=== PATIENT | female | born 1930 | race Caucasian/White ===

== ENCOUNTER 2016-07-27 10:04 | Inpatient (IN) | payer OTHER, MEDICARE ==
--- NOTE | 2016-07-27 10:26 | EDPHY ---
H & P Stated Complaint: leg swelling, not feeling well. recent uti Time Seen by Provider: 07/27/16 10:05 HPI/ROS: CHIEF COMPLAINT: Not feeling well HISTORY OF PRESENT ILLNESS: The patient is an 86-year-old female who is brought to the emergency department by EMS. Her caregiver at the [facility] called because she seemed to be moving slowly today and had trouble tying her shoes and has had increasing edema in both legs over the last month. Patient does have a history of atrial fibrillation, CHF and aortic valve replacement and is on blood thinners. She does not have any history of renal or liver disease. She not had a fever. She was recently treated for urinary tract infection and finished Macrobid yesterday. She has not had any other medication changes. She does take Lasix. REVIEW OF SYSTEMS: Constitutional: denies: chills, fever, recent illness, recent injury EENTM: denies: blurred vision, double vision, nose congestion Respiratory: denies: cough, shortness of breath Cardiac: See HPI Gastrointestinal/Abdominal: denies: abdominal pain, diarrhea, nausea, vomiting, blood streaked stools Genitourinary: denies: dysuria, frequency, hematuria, pain Musculoskeletal: denies: joint pain, muscle pain Skin: denies: lesions, rash, jaundice, bruising Neurological: denies: headache, numbness, paresthesia, tingling, dizziness, weakness Hematologic/Lymphatic: denies: blood clots, easy bleeding, easy bruising Immunologic/allergic: denies: HIV/AIDS, transplant EXAM: GENERAL: Well-appearing, well-nourished and in no acute distress. HEAD: Atraumatic, normocephalic. EYES: Pupils equal round and reactive to light, extraocular movements intact, sclera anicteric, conjunctiva are normal. ENT: TMs normal, nares patent, oropharynx clear without exudates. Moist mucous membranes. NECK: Normal range of motion, supple without lymphadenopathy or JVD. LUNGS: Breath sounds clear to auscultation bilaterally and equal. No wheezes rales or rhonchi. HEART: Murmur, regular rhythm ABDOMEN: Soft, nontender, normoactive bowel sounds. No guarding, no rebound. No masses appreciated. BACK: No CVA tenderness, no spinal tenderness, step-offs or deformities EXTREMITIES: Normal range of motion, 2 + pitting or edema. No clubbing or cyanosis. NEUROLOGICAL: Cranial nerves II through XII grossly intact. Normal speech, normal gait. 5/5 strength, normal movement in all extremities, normal sensation PSYCH: Normal mood, normal affect. SKIN: Warm, dry, normal turgor, no visible rashes or lesions. Source: Patient Exam Limitations: No limitations - Personal History Current Tetanus/Diphtheria Vaccine: Yes Current Tetanus Diphtheria and Acellular Pertussis (TDAP): Yes - Medical/Surgical History Hx Asthma: No Hx Chronic Respiratory Disease: Yes Hx Diabetes: No Hx Cardiac Disease: Yes Hx Renal Disease: No Hx Cirrhosis: No Hx Alcoholism: No Hx HIV/AIDS: No Hx Splenectomy or Spleen Trauma: No Other PMH: HTN, high cholesterol, spinal stenosis, cervical spine surgery June 2013, arthritis, breast CA, Right mastectomy 2001, hysterectomy, [place] 1989 six weeks after flu vaccine, CHF, polymyalgia rheumatica, aortic valve replacement - Family History Significant Family History: No pertinent family hx - Social History Smoking Status: Never smoked Alcohol Use: None Drug Use: None Constitutional: Initial Vital Signs Temperature (C) 37 C 07/27/16 10:17 Heart Rate 72 07/27/16 10:17 Respiratory Rate 18 07/27/16 10:17 Blood Pressure 121/59 H 07/27/16 10:17 O2 Sat (%) 91 L 07/27/16 10:17 O2 Delivery Mode Nasal Cannula O2 (L/minute) 2 Allergies/Adverse Reactions: Penicillins Allergy (Intermediate, Verified 12/13/15 15:58) Rash Sulfa (Sulfonamide Antibiotics) Allergy (Intermediate, Verified 12/13/15 15:58) Rash Benzodiazepines Allergy (Verified 12/13/15 15:58) gabapentin Allergy (Verified 12/13/15 15:58) Shellfish *RETIRED-02/20/12 [Shellfish] Allergy (Verified 10/14/15 08:29) Home Medications: Medication Instructions Recorded Cholecalciferol Vit D3 [Vitamin D3 2,000 units PO DAILY 10/07/14 (*)] Herbals/Supplements -Info Only 1 ea PO DAILY 10/07/14 [place]-3 Fatty Acids [Fish Oil 1000 1,000 mg PO DAILY 10/07/14 mg (*)] Vit C/Dl-E AC/Lut/Copper/Znox 1 each PO DAILY 10/07/14 [Preservision Softgel] Metoprolol Tartrate [Lopressor 25 25 mg PO BID #60 tab 10/14/14 mg (*)] Aspirin EC [Aspirin EC 81 mg (*)] 81 mg PO DAILY 10/29/15 Atorvastatin Calcium [Lipitor 10 10 mg PO HS 10/29/15 mg (*)] Furosemide [Lasix 40 MG (*)] 60 mg PO DAILY 10/29/15 Levothyroxine [Synthroid 25 mcg 25 mcg PO DAILY06 10/29/15 (*)] Spironolactone [Aldactone 25 MG 25 mg PO DAILY 10/29/15 (*)] predniSONE [Prednisone] 15 mg PO DAILY 10/29/15 Digoxin [Lanoxin 0.125 mg] 0.125 mg PO DAILY10 #0 tab 11/04/15 Furosemide [Lasix 40 MG (*)] 40 mg PO HS 07/27/16 Nitrofurantoin Monohyd/M-Cryst 100 mg PO BID 07/27/16 [Macrobid 100 mg Capsule] Medical Decision Making - Diagnostics EKG Interpretation: An EKG obtained and was read and documented in trace view. Please see trace view for full reading and report. Atrial fibrillation/flutter with a rate of 71. Similar to previous Imaging: X-ray: chest x-ray was obtained. I viewed the images myself on the PACS system. My interpretation of the images is: Bilateral lower lobe infiltrates. The radiologist interpretation is bilateral lower lobe infiltrate. ED Course/Re-evaluation: 11:55 a.m. we discussed the x-ray and lab results. I will start her on antibiotics for pneumonia admit to hospital service. She also has a slightly elevated troponin and is in atrial fib/flutter. This is likely due to the strain of the infection as is her BMP. I will treat initially for the infection and have added sepsis labs. 12:30 p.m. I discussed the case with Luke Alaniz who will accept and agrees with Marni. He requests telemetry. I have ordered the sepsis fluid bolus. The patient does have peripheral edema and elevated BNP and history of heart failure. Will take it slowly. On chest x-ray she does not have signs of pulmonary edema. She is not hypoxic. Differential Diagnosis: Partial list of the Differential diagnosis considered include but were not limited to; pneumonia, CHF, arrhythmia, renal insufficiency and although unlikely based on the history and physical exam, I also considered TIA, CVA. - Data Points Laboratory Results: Laboratory Results 07/27/16 10:15 07/27/16 10:15 Medications Given: Discontinued Medications Cefepime HCl 2 gm/ Dextrose 100 mls @ 200 mls/hr IV EDNOW ONE PRN Reason: Protocol Stop: 07/27/16 12:20 Last Admin: 07/27/16 16:51 Dose: Not Given Sodium Chloride (Ns *For Sepsis Order Set Only*) 1,442 ml 30 ml/kg (1442 ml) IV EDNOW ONE Stop: 07/27/16 12:51 Last Admin: 07/27/16 13:19 Dose: 1,442 ml Departure - Departure Disposition: [facility] Inpatient Acute Clinical Impression: Severe sepsis Pneumonia Qualifiers: Pneumonia type: aspiration pneumonia Aspiration pneumonia type: unspecified Laterality: bilateral Lung location: lower lobe of lung Qualified Code(s): J69.0 - Pneumonitis due to inhalation of food and vomit Condition: Fair
[2016-07-27 10:33] LABS: % IMMATURE GRANULYOCYTES 0.9 % (0.0-1.1); ABSOLUTE IMMATURE GRANULOCYTES 0.07 10^3/uL (0.00-0.10); ADD DIFF? NO; ADD MORPH? NO; ADD SCAN? NO; ATYPICAL LYMPHOCYTE FLAG 0 (0-99); FRAGMENT RBC FLAG 0 (0-99); HEMOGLOBIN 12.9 g/dL (12.6-16.3); LEFT SHIFT FLG 10 (0-99); LIPEMIA HEMOLYSIS FLAG 90 (0-99); MEAN CELL HEMOGLOBIN 31.9 pg (27.9-34.1); MEAN CELL HEMOGLOBIN CONCENTR. 33.9 g/dL (32.4-36.7); MEAN CELL VOLUME 94.1 fL (81.5-99.8); MEAN PLATELET VOLUME 10.8 fL (8.7-11.7); PLATELET CLUMPS FLAG 0 (0-99); PLATELET COUNT 173 10^3/uL (150-400); RED BLOOD CELL COUNT 4.04 10^6/uL (4.18-5.33); RED CELL DISTRIBUTION WIDTH 15.2 % (11.5-15.2)
[2016-07-27 10:49] LABS: INR 3.05 (0.83-1.16)
[2016-07-27 10:50] LABS: APTT 47.5 SEC (23.0-38.0)
[2016-07-27 11:11] LABS: ANION GAP 11 mEq/L (8-16); CALCIUM 9.2 mg/dL (8.5-10.4); CARBON DIOXIDE 27 mEq/l (22-31); CHLORIDE 95 mEq/L (97-110); CREATININE 1.2 mg/dL (0.6-1.0); GLOMERULAR FILTRATION RATE 42; GLUCOSE 91 mg/dL (70-100); POTASSIUM 3.8 mEq/L (3.5-5.2); SODIUM 133 mEq/L (134-144)
--- NOTE | 2016-07-27 11:18 | CPEKG ---
Heart Rate: 71 RR Interval: 845 QRSD Interval: 108 QT Interval: 452 QTC Interval: 492 QRS [place]: -55 T Wave [place]: 106 EKG Severity - ABNORMAL ECG - EKG Impression: A-FLUTTER W/ PREDOM 4:1 AV BLOCK, A-RATE 283 EKG Impression: LEFT ANTERIOR FASCICULAR BLOCK EKG Impression: LVH WITH SECONDARY REPOLARIZATION ABNORMALITY EKG Impression: BORDERLINE PROLONGED QT INTERVAL Electronically Signed By: Donal Diaz 27-Jul-2016 11:41:50
[2016-07-27 11:22] LABS: TROPONIN I 0.107 ng/mL (0-0.034)
[2016-07-27] MEDS ORDERED: CEFEPIME HCL 2 GM in D5W 100 ML IV ONE (11:51)
[2016-07-27] MEDS ORDERED: NS 1,000 ML BAG *FOR SEPSIS ORDER SET ONLY IV ONE (12:50)
[2016-07-27] MEDS: ERTAPENEM 1 GM in NS 100 ML IV SCH (12:53)
[2016-07-27] MEDS ORDERED: ALBUTEROL 3 ML DEYVIAL IH PRN (13:03)
[2016-07-27] MEDS ORDERED: ONDANSETRON 4 MG/2 ML VIAL IVP PRN (13:03)
[2016-07-27] MEDS ORDERED: ONDANSETRON DISINTEGRATING 4 MG TAB PO PRN (13:03)
[2016-07-27] MEDS ORDERED: diphenhydrAMINE 25 MG CAP PO PRN (13:03)
--- NOTE | 2016-07-27 14:03 | GHP ---
[f rep st] HISTORY AND PHYSICAL DATE OF ADMISSION: 07/27/2016 REASON FOR ADMISSION: Suspected pneumonia versus fluid overload. HISTORY OF PRESENT ILLNESS: Ms. Romano is an 86-year-old female, who has been reported to be more c onfused with encounters with her son and friends, given difficulty with dialing phone numbers. This morning she was brought to the emergency room. In the ER, she was found to have suggestion of infi ltrates in her lungs. She has also had significant edema in her lower extremities. She has been on Macrobid for the past 6 days for a urinary tract infection. She has had a minimal cough, but feels there is a bit more cough present now than she has typically. No fever or chills. No headache, no gastrointestinal complaints. No chest pain or sense of palpitations. No gross dysuria symptoms no w or before starting antibiotics, other than lower extremity edema. No other physical changes besid es bruising on her right sclerae. PAST MEDICAL HISTORY: Significant for known valvular heart disease, status post open heart surgery approximately 2 years ago, CHF secondary to valvular insufficiency, systolic function has been maint ained, polymyalgia rheumatica on chronic prednisone, mitral valve regurgitation, tricuspid regurgita tion, shortness of breath, history of pleural effusions improved on diuretic therapy, atrial fibrill ation with stable rate, on chronic Coumadin therapy, hypothyroidism, pulmonary hypertension on Revat io, neck pain, chronic, status post prior large C-spine fusion and lumbar spine spinal stenosis, 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 CURRENT MEDICATIONS: Coumadin daily, aspirin daily, digoxin 0.125 mg daily, bone builder daily, zol pidem 5 mg at bedtime, PreserVision ocular supplement daily, vitamin D3 daily, tramadol 50 mg q.8 ho urs p.r.n. pain, sildenafil 20 mg three times daily, Miacalcin nasal spray 1 spray to 1 nostril alte rnating daily, spironolactone 12.5 mg daily, metoprolol 25 mg twice daily, Lasix 60 mg in the mornin g 40 mg mid day, warfarin averaging approximately 2.5 mg daily, Lipitor 10 mg daily, levothyroxine 2 5 mcg daily, prednisone 15 mg daily. Her last dose of Macrobid would of been today at 100 mg daily. SURGICAL HISTORY: Hysterectomy, mastectomy, cervical diskectomy and fusion, open-heart surgery with valvular replacement and bypass, prior hospitalizations due to surgical issues as well as compressi on fractures. SOCIAL HISTORY: Non smoker, non drinker. Lives independently. 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 FAMILY HISTORY: Father at 69 complications of heart disease and diabetes. Mother at 95. ALLERGIES: Penicillin which causes a rash. Sulfa which causes diffuse rash. Celebrex causes diffu se rash. Gabapentin. REVIEW OF SYSTEMS: GENERAL: She is a bit more tired. She has been confused. No headache. No feve r or chills. HEENT: No visual changes. No nasal congestion, sore throat, ear fullness. Long-stand ing hearing loss right greater the left, is stable. NECK: No acute swelling. No new pain. Chroni c pain in the neck region, stable. RESPIRATORY: She denies shortness of breath. She admits to a sl ight sense of cough. No difficulty with breathing. CARDIOVASCULAR: No chest pain, heaviness, or pr essure. No sense of rhythm irregularity. GI: She denies any recent choking episode. She denies d ysphagia. No stomach pain. No change in bowel habits. No abdominal pain. : No current urinary symptoms. SKIN: No acute changes. MUSCULOSKELETAL: Chronic back pain is a stable challenge. She does take p.r.n. tramadol and Tylenol for this. Lower extremity edema in her legs has been much mor e problematic/prominent over the past 5 or so days. Myelopathy symptoms in her lower extremities be low the level of the knee, is a stable phenomenon. PHYSICAL EXAM: INITIAL VITAL SIGNS: Blood pressure 121/59, heart rate 72, respiratory rate 18, 91% room air. Temperature 37 degrees Celsius. GENERAL: Pleasant older female. HEENT: Hard of hearing . Prior cataract surgery. Scleral hemorrhage right eye laterally. Nasal cannula in place. The na denita mucosa is generally smooth. Oropharynx is benign. NECK: Without masses. Postsurgical changes are noted. No jugular venous pressure elevation. LUNGS: Increased bibasilar crackles with nonprodu ctive cough. HEART: Irregularly irregular rhythm without new murmur. Chronic 1 to 2/6 systolic mu rmur is present. ABDOMEN: Positive bowel sounds. Soft, nontender, nondistended. BREAST AND PELVIC : Exam is deferred. SKIN: Scattered mild ecchymosis. No new rash. EXTREMITIES: Lower extremities with 2 to 3+ edema. Joints without other acute erythema, warmth, or swelling. DATABASE: Electrolytes: Sodium 133, BUN 61, creatinine 1.2. Troponin 0.107 which is elevated. BNP is 6280, which is up about 2000 from prior baseline. Lactic acid normal range. INR 3.05. D-dimer 0.91. White count 7.77. Hemoglobin 12.9, platelets 173, left shift 93.5% neutrophils. Chest x-ray, bibasilar infiltrates, pattern potentially consistent with aspiration pneumonia. ASSESSMENT: 1. Abnormal chest x-ray, muddled mentation, possible congestive heart failure exacerbation versus p neumonia. She has been started on Invanz. Blood cultures have been taken. Will continue current a ntibiotic course and see how she improves. 2. Valvular insufficiency with resultant systolic congestive heart failure. She has been on a fair ly stable aggressive diuretic regimen. She has had an increase in lower extremity edema and her inf iltrates could certainly represent some level of fluid overload in her lungs. We will add compressi ve stockings, continue her current diuretic schedule, and follow her symptoms closely. 3. Elevated troponin, likely secondary to stress of the current situation. Will follow this value with a repeat tomorrow. 4. Elevated INR. She is on Coumadin for atrial fibrillation. INR is slightly above goal. We will adjust therapy once her medicines have been reconciled by pharmacy. 5. Valvular heart disease. We will follow her clinical course. She may need a repeat echocardiogr am. 6. Pulmonary hypertension. Historically she has done quite well on sildenafil three times daily. Will continue. 7. Confusion, likely secondary to pneumonia versus fluid overload, and some intermittent hypoxia ve rsus medications. She has taken tramadol intermittently which could be the reason for this. Will o bserve her acute encephalopathy closely, and follow for its improvement. 8. Elevated BUN/creatinine. This is chronic given her diuretic therapy. We will follow closely. 9. She is a DNR and we will discuss her current situation with her son Gerardo, based on patient requ est. /[id number]/MODL
[2016-07-27] MEDS ORDERED: FUROSEMIDE 40 MG TAB PO SCH ×2 (17:00→21:00)
[2016-07-27] MEDS: predniSONE 10 MG TAB PO SCH (17:11)
[2016-07-27 19:39] LABS: COLOR YELLOW; LEUKOCYTE ESTERASE,URINE TRACE (NEGATIVE); NITRITE,URINE NEGATIVE (NEGATIVE)
[2016-07-27 19:48] LABS: BACTERIA TRACE /hpf (NONE SEEN)
[2016-07-27] MEDS: METOPROLOL TARTRATE 25 MG TAB PO SCH (20:03)
[2016-07-27] MEDS: ATORVASTATIN CALCIUM 10 MG TAB PO SCH (20:03)
[2016-07-28 04:52] LABS: % IMMATURE GRANULYOCYTES 0.5 % (0.0-1.1); ABSOLUTE IMMATURE GRANULOCYTES 0.02 10^3/uL (0.00-0.10); ADD DIFF? NO; ADD MORPH? NO; ADD SCAN? NO; ATYPICAL LYMPHOCYTE FLAG 0 (0-99); FRAGMENT RBC FLAG 0 (0-99); HEMATOCRIT 31.3 % (38.0-47.0); HEMOGLOBIN 10.6 g/dL (12.6-16.3); LEFT SHIFT FLG 0 (0-99); LIPEMIA HEMOLYSIS FLAG 90 (0-99); MEAN CELL HEMOGLOBIN 31.5 pg (27.9-34.1); MEAN CELL HEMOGLOBIN CONCENTR. 33.9 g/dL (32.4-36.7); MEAN CELL VOLUME 93.2 fL (81.5-99.8); MEAN PLATELET VOLUME 10.3 fL (8.7-11.7); PLATELET CLUMPS FLAG 0 (0-99); PLATELET COUNT 153 10^3/uL (150-400); RED BLOOD CELL COUNT 3.36 10^6/uL (4.18-5.33); RED CELL DISTRIBUTION WIDTH 14.9 % (11.5-15.2)
[2016-07-28 05:06] LABS: ANION GAP 5 mEq/L (8-16); CALCIUM 8.6 mg/dL (8.5-10.4); CARBON DIOXIDE 27 mEq/l (22-31); CHLORIDE 101 mEq/L (97-110); CREATININE 0.9 mg/dL (0.6-1.0); GLOMERULAR FILTRATION RATE 59; GLUCOSE 121 mg/dL (70-100); POTASSIUM 3.6 mEq/L (3.5-5.2); SODIUM 133 mEq/L (134-144)
[2016-07-28 05:13] LABS: INR 3.85 (0.83-1.16); PROTIME(PATIENT) 38.5 SEC (12.0-15.0)
[2016-07-28 05:17] LABS: TROPONIN I 0.063 ng/mL (0-0.034)
[2016-07-28] MEDS: LEVOTHYROXINE 25 MCG TAB PO SCH (06:18)
--- NOTE | 2016-07-28 08:28 | SOAPPROG ---
SOAP Progress Note Assessment/Plan: Assessment: Plan: 07/28/16 08:28 poss pna--check CXR, continue invanz for now. edema/CHF/valvular heart disease--expect diuresis today from fluid load yesterday T-spine cord entrapment--use brace when sitting, standing, walking a fib--coumadin held INR elevated--follow daily confusion--poss due to macrobid (stopped), pna, or other--follow Subjective: The patient states she slept well. She feels sleepy this am. No trouble breathing or cough. No CP. Objective: Vital Signs Temp Pulse Resp BP Pulse Ox 36.4 C 74 16 122/58 H 98 07/28/16 07:19 07/28/16 07:19 07/28/16 07:19 07/28/16 07:19 07/28/16 07:19 Laboratory Results 07/28/16 04:41 07/28/16 04:41 07/27/16 07/28/16 07/29/16 05:59 05:59 05:59 Intake Total 450 Output Total 300 300 Balance 150 -300 PT 38.5 SEC (12.0-15.0) H 07/28/16 04:41 INR 3.85 (0.83-1.16) H 07/28/16 04:41 Gen: NAD, sleepy muddled this am Lungs: diminished BS, dry cough Heart: irreg irreg Abd + bs soft NT, ND LE's reduced edema INR elevated WBC and neurophil % normal range BMP cr lower than baseline after fluids yesterday ICD10 Worksheet Patient Problems: Problems Problem Status Onset Pneumonia Acute Severe sepsis Acute Aortic stenosis Acute CAD (coronary artery disease) Acute CHF due to valvular disease Acute Sacral insufficiency fracture Acute
[2016-07-28] MEDS ORDERED: Herbals/Supplements -Info Only PO SCH (09:00)
[2016-07-28] MEDS: PRESERVISION AREDS2 FORMULA EYE VIT 1 EACH PO SCH (09:00)
[2016-07-28] MEDS: FUROSEMIDE 40 MG TAB PO SCH ×2 (09:00→14:44)
[2016-07-28] MEDS: CHOLECALCIFEROL VIT D3 1,000 UNITS TAB PO SCH (09:00)
[2016-07-28] MEDS: ASPIRIN EC 81 MG TAB PO SCH (09:00)
[2016-07-28] MEDS: predniSONE 10 MG TAB PO SCH (09:01)
[2016-07-28] MEDS: OMEGA-3 FATTY ACIDS 1,000 MG CAP PO SCH (09:01)
[2016-07-28] MEDS: METOPROLOL TARTRATE 25 MG TAB PO SCH ×2 (09:01→20:05)
[2016-07-28] MEDS: SPIRONOLACTONE 25 MG TAB PO SCH (09:02)
[2016-07-28] MEDS: DIGOXIN 125 MCG TAB PO SCH (09:05)
[2016-07-28] MEDS: ERTAPENEM 1 GM in NS 100 ML IV SCH (09:53)
[2016-07-28] MEDS: ATORVASTATIN CALCIUM 10 MG TAB PO SCH (20:06)
[2016-07-29 05:25] LABS: % IMMATURE GRANULYOCYTES 1.1 % (0.0-1.1); ABSOLUTE IMMATURE GRANULOCYTES 0.07 10^3/uL (0.00-0.10); ADD DIFF? NO; ADD MORPH? NO; ADD SCAN? NO; ATYPICAL LYMPHOCYTE FLAG 40 (0-99); FRAGMENT RBC FLAG 0 (0-99); HEMATOCRIT 31.1 % (38.0-47.0); HEMOGLOBIN 10.7 g/dL (12.6-16.3); LEFT SHIFT FLG 10 (0-99); LIPEMIA HEMOLYSIS FLAG 90 (0-99); MEAN CELL HEMOGLOBIN 32.3 pg (27.9-34.1); MEAN CELL HEMOGLOBIN CONCENTR. 34.4 g/dL (32.4-36.7); MEAN PLATELET VOLUME 10.7 fL (8.7-11.7); PLATELET CLUMPS FLAG 0 (0-99); PLATELET COUNT 174 10^3/uL (150-400); RED BLOOD CELL COUNT 3.31 10^6/uL (4.18-5.33); RED CELL DISTRIBUTION WIDTH 14.8 % (11.5-15.2)
[2016-07-29 05:45] LABS: INR 3.95 (0.83-1.16); PROTIME(PATIENT) 39.3 SEC (12.0-15.0)
[2016-07-29 05:46] LABS: ANION GAP 7 mEq/L (8-16); CALCIUM 8.6 mg/dL (8.5-10.4); CARBON DIOXIDE 27 mEq/l (22-31); CHLORIDE 101 mEq/L (97-110); GLOMERULAR FILTRATION RATE 52; GLUCOSE 113 mg/dL (70-100); POTASSIUM 3.8 mEq/L (3.5-5.2); SODIUM 135 mEq/L (134-144)
[2016-07-29] MEDS: LEVOTHYROXINE 25 MCG TAB PO SCH (06:13)
[2016-07-29] MEDS: OMEGA-3 FATTY ACIDS 1,000 MG CAP PO SCH (08:11)
[2016-07-29] MEDS: predniSONE 10 MG TAB PO SCH (08:11)
[2016-07-29] MEDS: CHOLECALCIFEROL VIT D3 1,000 UNITS TAB PO SCH (08:12)
[2016-07-29] MEDS: DIGOXIN 125 MCG TAB PO SCH (08:12)
[2016-07-29] MEDS: ASPIRIN EC 81 MG TAB PO SCH (08:12)
[2016-07-29] MEDS: SPIRONOLACTONE 25 MG TAB PO SCH (08:12)
[2016-07-29] MEDS: METOPROLOL TARTRATE 25 MG TAB PO SCH ×2 (08:12→21:52)
[2016-07-29] MEDS: FUROSEMIDE 40 MG TAB PO SCH ×2 (08:12→16:06)
[2016-07-29] MEDS: PRESERVISION AREDS2 FORMULA EYE VIT 1 EACH PO SCH (08:12)
[2016-07-29] MEDS: ERTAPENEM 1 GM in NS 100 ML IV SCH (08:15)
--- NOTE | 2016-07-29 08:53 | SOAPPROG ---
KEHINDE Progress Note Assessment/Plan: Assessment: Plan: 07/28/16 08:28 poss pna--check CXR, continue invanz for now. edema/CHF/valvular heart disease--expect diuresis today from fluid load yesterday T-spine cord entrapment--use brace when sitting, standing, walking a fib--coumadin held INR elevated--follow daily confusion--poss due to macrobid (stopped), pna, or other--follow 07/29/16 08:51 pna--clinically stable, continue invanz edema/CHF/ valvular heart disease--stable severe pulmonary htn--resume sildenafil a fib--INR still elevated, coumadin held, baseline dose 3 mg daily warfarin confusion--improving, baseline brisk sharpness still reduced Subjective: Tisha feels ok. She was able to walk lots yesterday. No obvious shortness of breath or lung congestion. Eating ok. No GI complaints Objective: Vital Signs Temp Pulse Resp BP Pulse Ox 36.4 C 71 22 H 127/61 H 91 L 07/29/16 07:25 07/29/16 07:25 07/29/16 07:25 07/29/16 07:25 07/29/16 07:25 Laboratory Results 07/29/16 04:46 07/29/16 04:46 07/28/16 07/29/16 07/30/16 05:59 05:59 05:59 Intake Total 450 600 180 Output Total 300 850 100 Balance 150 -250 80 PT 39.3 SEC (12.0-15.0) H 07/29/16 04:46 INR 3.95 (0.83-1.16) H 07/29/16 04:46 Gen: NAD, she is not able easily explain the details of why she is here. She has the gist of it generally Lungs: diminished BS, crackles in bases Heart: a flutter with stable rhythm ABd + bs soft Edema--improved with stockings WBC stable Anemia--mild BMP stable range INR 3.95 ICD10 Worksheet Patient Problems: Problems Problem Status Onset Pneumonia Acute Severe sepsis Acute Aortic stenosis Acute CAD (coronary artery disease) Acute CHF due to valvular disease Acute Sacral insufficiency fracture Acute
[2016-07-29] MEDS: SILDENAFIL CITRATE 20 MG TAB PO SCH ×2 (12:32→17:52)
[2016-07-29] MEDS: ATORVASTATIN CALCIUM 10 MG TAB PO SCH (21:52)
[2016-07-29] MEDS: ACETAMINOPHEN 325 MG TAB PO PRN (21:52)
[2016-07-30] MEDS: ACETAMINOPHEN 325 MG TAB PO PRN ×2 (04:58→21:51)
[2016-07-30] MEDS: LEVOTHYROXINE 25 MCG TAB PO SCH (04:58)
[2016-07-30 05:34] LABS: % IMMATURE GRANULYOCYTES 0.9 % (0.0-1.1); ABSOLUTE IMMATURE GRANULOCYTES 0.06 10^3/uL (0.00-0.10); ADD DIFF? NO; ADD MORPH? NO; ADD SCAN? NO; ATYPICAL LYMPHOCYTE FLAG 40 (0-99); FRAGMENT RBC FLAG 0 (0-99); HEMATOCRIT 32.7 % (38.0-47.0); HEMOGLOBIN 10.9 g/dL (12.6-16.3); LEFT SHIFT FLG 0 (0-99); LIPEMIA HEMOLYSIS FLAG 80 (0-99); MEAN CELL HEMOGLOBIN 31.6 pg (27.9-34.1); MEAN CELL HEMOGLOBIN CONCENTR. 33.3 g/dL (32.4-36.7); MEAN CELL VOLUME 94.8 fL (81.5-99.8); MEAN PLATELET VOLUME 10.3 fL (8.7-11.7); PLATELET CLUMPS FLAG 0 (0-99); PLATELET COUNT 179 10^3/uL (150-400); RED BLOOD CELL COUNT 3.45 10^6/uL (4.18-5.33)
[2016-07-30 05:52] LABS: ANION GAP 8 mEq/L (8-16); CALCIUM 8.8 mg/dL (8.5-10.4); CARBON DIOXIDE 29 mEq/l (22-31); CHLORIDE 102 mEq/L (97-110); GLOMERULAR FILTRATION RATE 52; GLUCOSE 84 mg/dL (70-100); POTASSIUM 3.7 mEq/L (3.5-5.2); SODIUM 139 mEq/L (134-144)
[2016-07-30 06:03] LABS: INR 2.96 (0.83-1.16); PROTIME(PATIENT) 31.2 SEC (12.0-15.0)
--- NOTE | 2016-07-30 07:16 | SOAPPROG ---
SOAP Progress Note Assessment/Plan: Assessment: 86 yo delightful elderly female admitted 07/27/16 w increasing confusion and pneumonia. Lives independently at [facility] and gets some help w/ friends. Dtr and son like out of state . -pna - today will be day 4 of invanz, pt improving dramatically in last 24 hours -a fib - has had warfarin held b/c elev INR on admission, settling down to 2.9 today, will resume warfarin and follow inr -confusion/mental status change from baseline - Tisha is getting better daily , she feels she is "back to normal!", feeling much better -severe pul;y htn - cont on sildenafil -h/o chronic CHF/valve ds - bnp up but over last 24 hours with better urine output now that she is feeling better, follow volume status, edema dramatically down as UOP has increased in last 24 hours -h/o thoracic spinal cord compression/entrapment - has been eval by [facility] and has a brace for sitting/standing/walking. -dispo - will likely need more assistance at home, consider SNF rehab until stronger, will d/w pt - pt wants to ambulate a lot more today, work on strength see how the next 24 hours go - she really wants to be able to go home and not snf. Will d/c tele and let her ambulate more freely. PRINCESS Steiner. Plan: 07/30/16 07:10 07/30/16 09:13 07/30/16 09:18 Subjective: "the fuzziness is gone", feeling so much better, anxious to get moving around more, wants to shower today Objective: Vital Signs Temp Pulse Resp BP Pulse Ox 36.2 C 72 16 119/63 98 07/30/16 04:00 07/30/16 04:00 07/30/16 04:00 07/30/16 04:00 07/30/16 04:00 Microbiology 07/27/16 19:46 Urine Culture - Final Urine,Clean Catch Two [place] Types Laboratory Results 07/30/16 05:13 07/30/16 05:13 07/29/16 07/30/16 07/31/16 05:59 05:59 05:59 Intake Total 600 795 Output Total 850 1320 Balance -250 -525 PT 31.2 SEC (12.0-15.0) H D 07/30/16 05:13 INR 2.96 (0.83-1.16) H 07/30/16 05:13 Gen: a&O x3, pleasant, in good spirits Heent: wearing nasal cannula Chest: still w/ few crackles L sided, decreased BS CV: rr PEDRO LUIS 07/18 Abd: soft nt nd Ext: edema way decreased to trace-1+ today - Pending Discharge Pending Discharge Within 48 Hours: Yes Pending Discharge Date: 08/01/16 Pending Discharge Time: 11:00 ICD10 Worksheet Patient Problems: Problems Problem Status Onset Pneumonia Acute Severe sepsis Acute Aortic stenosis Acute CAD (coronary artery disease) Acute CHF due to valvular disease Acute Sacral insufficiency fracture Acute
[2016-07-30] MEDS: FUROSEMIDE 40 MG TAB PO SCH ×2 (09:34→15:32)
[2016-07-30] MEDS: OMEGA-3 FATTY ACIDS 1,000 MG CAP PO SCH (09:34)
[2016-07-30] MEDS: ASPIRIN EC 81 MG TAB PO SCH (09:34)
[2016-07-30] MEDS: CHOLECALCIFEROL VIT D3 1,000 UNITS TAB PO SCH (09:34)
[2016-07-30] MEDS: SILDENAFIL CITRATE 20 MG TAB PO SCH ×3 (09:34→18:37)
[2016-07-30] MEDS: PRESERVISION AREDS2 FORMULA EYE VIT 1 EACH PO SCH (09:34)
[2016-07-30] MEDS: METOPROLOL TARTRATE 25 MG TAB PO SCH ×2 (09:34→21:51)
[2016-07-30] MEDS: DIGOXIN 125 MCG TAB PO SCH (09:34)
[2016-07-30] MEDS: predniSONE 10 MG TAB PO SCH (09:35)
[2016-07-30] MEDS: ERTAPENEM 0.5 GM in NS 100 ML IV SCH (09:54)
[2016-07-30] MEDS: SPIRONOLACTONE 25 MG TAB PO SCH (09:54)
[2016-07-30] MEDS: WARFARIN SODIUM 3 MG TAB PO SCH (15:32)
[2016-07-30] MEDS: ATORVASTATIN CALCIUM 10 MG TAB PO SCH (21:51)
[2016-07-31] MEDS: LEVOTHYROXINE 25 MCG TAB PO SCH (04:53)
[2016-07-31 06:24] LABS: INR 2.82 (0.83-1.16)
--- NOTE | 2016-07-31 08:55 | SOAPPROG ---
SOAP Progress Note Assessment/Plan: Assessment: 86 yo delightful elderly female admitted 07/27/16 w increasing confusion and pneumonia. Lives independently at [facility] and gets some help w/ friends. Dtr and son like out of state . -pna - today will be day 4 of invanz, pt improving dramatically in last 24 hours -a fib - has had warfarin held b/c elev INR on admission, settling down to 2.9 today, will resume warfarin and follow inr -confusion/mental status change from baseline - Tisha is getting better daily , she feels she is "back to normal!", feeling much better -severe pul;y htn - cont on sildenafil -h/o chronic CHF/valve ds - bnp up but over last 24 hours with better urine output now that she is feeling better, follow volume status, edema dramatically down as UOP has increased in last 24 hours -h/o thoracic spinal cord compression/entrapment - has been eval by N-S and has a brace for sitting/standing/walking. -dispo - will likely need more assistance at home, consider SNF rehab until stronger, will d/w pt - pt wants to ambulate a lot more today, work on strength see how the next 24 hours go - she really wants to be able to go home and not snf. Will d/c tele and let her ambulate more freely. DW VANESA Steiner. Plan 07/31/16 08:50 86 yo female w/ pna, confusion - -pna - on day 5 of invanz, doing better but still desaturates quickly w/ ambulation, may need home oxygen, strength not quite where it needs to be yet, fatigues quickly w/ walking, appreciate assistance of VANESA Steiner and hopefully pt/ot today. Tisha would like to go home w/ home health if possible, not quite ready yet, need to see how she can do today to assess safety. -confusion - continuing to get better and better, able to answer questions appropriately, feeling "like herself" -puly htn - sildenafil -chronic chf/valve ds -stable -thoracic cord compression - brace per NS -dispo - hopefully strong enough to d/c home tomorrow w/ HH, if not will consider SNF. Subjective: Feeling better but doesn't feel super strong Objective: Vital Signs Temp Pulse Resp BP Pulse Ox 36.4 C 53 L 13 117/77 98 07/31/16 08:35 07/31/16 08:35 07/31/16 08:35 07/31/16 08:35 07/31/16 08:35 Laboratory Results 07/30/16 05:13 07/30/16 05:13 07/30/16 07/31/16 08/01/16 05:59 05:59 05:59 Intake Total 795 740 Output Total 1320 900 Balance -525 -160 PT 30.0 SEC (12.0-15.0) H 07/31/16 05:10 INR 2.82 (0.83-1.16) H 07/31/16 05:10 Gen: A&O, pleasant, getting up to go to bathroom Heent: nasal cannula in place Chest: improved bs, slight crackles L CV: rr Abd: soft nt nd Ext: trace-1 edema - Pending Discharge Pending Discharge Within 48 Hours: Yes Pending Discharge Date: 08/02/16 Pending Discharge Time: 11:00 ICD10 Worksheet Patient Problems: Problems Problem Status Onset Sacral insufficiency fracture Acute CHF due to valvular disease Acute Aortic stenosis Acute CAD (coronary artery disease) Acute Pneumonia Acute Severe sepsis Acute
[2016-07-31] MEDS: predniSONE 10 MG TAB PO SCH (10:05)
[2016-07-31] MEDS: ASPIRIN EC 81 MG TAB PO SCH (10:05)
[2016-07-31] MEDS: FUROSEMIDE 40 MG TAB PO SCH ×2 (10:06→15:12)
[2016-07-31] MEDS: DIGOXIN 125 MCG TAB PO SCH (10:06)
[2016-07-31] MEDS: METOPROLOL TARTRATE 25 MG TAB PO SCH ×2 (10:08→22:32)
[2016-07-31] MEDS: PRESERVISION AREDS2 FORMULA EYE VIT 1 EACH PO SCH (10:08)
[2016-07-31] MEDS: CHOLECALCIFEROL VIT D3 1,000 UNITS TAB PO SCH (10:08)
[2016-07-31] MEDS: OMEGA-3 FATTY ACIDS 1,000 MG CAP PO SCH (10:08)
[2016-07-31] MEDS: SILDENAFIL CITRATE 20 MG TAB PO SCH ×3 (10:09→17:30)
[2016-07-31] MEDS: ERTAPENEM 0.5 GM in NS 100 ML IV SCH (10:10)
[2016-07-31] MEDS: SPIRONOLACTONE 25 MG TAB PO SCH (10:17)
[2016-07-31] MEDS: metroNIDAZOLE 500 MG TAB PO SCH ×2 (13:30→22:32)
[2016-07-31] MEDS: WARFARIN SODIUM 3 MG TAB PO SCH (17:29)
[2016-07-31] MEDS: ATORVASTATIN CALCIUM 10 MG TAB PO SCH (22:32)
[2016-08-01] MEDS: ACETAMINOPHEN 325 MG TAB PO PRN (02:45)
[2016-08-01 04:04] VITALS: BP 128/63; PULSE 72; TEMP 97.7
[2016-08-01] MEDS: LEVOTHYROXINE 25 MCG TAB PO SCH (06:17)
[2016-08-01] MEDS: SILDENAFIL CITRATE 20 MG TAB PO SCH ×2 (08:04→11:37)
[2016-08-01] MEDS: PRESERVISION AREDS2 FORMULA EYE VIT 1 EACH PO SCH (08:05)
[2016-08-01] MEDS: ASPIRIN EC 81 MG TAB PO SCH (08:05)
[2016-08-01] MEDS: CHOLECALCIFEROL VIT D3 1,000 UNITS TAB PO SCH (08:05)
[2016-08-01] MEDS: METOPROLOL TARTRATE 25 MG TAB PO SCH (08:06)
[2016-08-01] MEDS: FUROSEMIDE 40 MG TAB PO SCH ×2 (08:06→14:51)
[2016-08-01] MEDS: OMEGA-3 FATTY ACIDS 1,000 MG CAP PO SCH (08:06)
[2016-08-01] MEDS: metroNIDAZOLE 500 MG TAB PO SCH (08:06)
[2016-08-01] MEDS: predniSONE 10 MG TAB PO SCH (08:07)
[2016-08-01] MEDS: SPIRONOLACTONE 25 MG TAB PO SCH (08:07)
--- NOTE | 2016-08-01 09:21 | SOAPPROG ---
KEHINDE Progress Note Assessment/Plan: Assessment: Plan: 07/28/16 08:28 poss pna--check CXR, continue invanz for now. 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 c diff on flagyl with good tolerance diarrhea--will be a challenge at home, patient agreeable to SNF, would prefer [facility] confusion--much better a fib--on coumadin--INR stable d/c SNF today if bed available Subjective: The patient admits to challenges with c diff diarrhea and accidents. She thinks that SNF would make sense. She otherwise feels good. Objective: Vital Signs Temp Pulse Resp BP Pulse Ox 36.5 C 72 16 128/63 H 97 08/01/16 04:00 08/01/16 08:06 08/01/16 04:00 08/01/16 08:06 08/01/16 04:00 Laboratory Results 07/30/16 05:13 07/30/16 05:13 07/31/16 08/01/16 08/02/16 05:59 05:59 05:59 Intake Total 740 400 200 Output Total 900 1150 300 Balance -160 -750 -100 PT 30.0 SEC (12.0-15.0) H 07/31/16 05:10 INR 2.82 (0.83-1.16) H 07/31/16 05:10 Gen: NAD, bright Lungs: improved aeration, mild basilar crackles Heart: regular a flutter Abd + bs soft, NT LE's trace-1+ edema at the ankle INR stable (07/31) ICD10 Worksheet Patient Problems: Problems Problem Status Onset Chronic Disease Mgmt/Transitional Care Acute Pneumonia Acute Severe sepsis Acute Aortic stenosis Acute CAD (coronary artery disease) Acute CHF due to valvular disease Acute Sacral insufficiency fracture Acute
--- NOTE | 2016-08-01 09:28 | PDIAF ---
- Diagnosis Diagnosis: pna-completed anthony cuevas diff on flaygl, valvular heart dz, a fib Code Status: Do Not Resuscitate - Medication Management Discharge Medications: Medications to Continue on Transfer Herbals/Supplements -Info Only 1 ea PO DAILY 10/07/14 [Last Taken 10/07/14] Acetaminophen [Tylenol 325mg (*)] 650 mg PO Q4HRS PRN #0 tab 08/01/16 [Last Taken Unknown] Albuterol [Proventil Neb] 3 ml IH Q2HRS PRN #0 deyvial 08/01/16 [Last Taken Unknown] Aspirin EC [Aspirin EC 81 mg (*)] 81 mg PO DAILY #0 tab 08/01/16 [Last Taken Unknown] Atorvastatin Calcium [Lipitor 10 mg (*)] 10 mg PO HS #0 tab 08/01/16 [Last Taken Unknown] C/E/Zn/Cu/OM3/DHA/EPA/LUT/ZEAX [Preservision Areds 2 Softgel] 1 each PO DAILY # 0 cap 08/01/16 [Last Taken Unknown] Cholecalciferol Vit D3 [Vitamin D3 (*)] 2,000 units PO DAILY #0 tab 08/01/16 [ Last Taken Unknown] Digoxin [Lanoxin 125 mcg (RX)] 125 mcg PO DAILY10 #0 tab 08/01/16 [Last Taken Unknown] Furosemide [Lasix 40 MG (*)] 40 mg PO BID@0900,1500 #0 tab 08/01/16 [Last Taken Unknown] Levothyroxine [Synthroid 25 mcg (*)] 25 mcg PO DAILY06 #0 tab 08/01/16 [Last Taken Unknown] Metoprolol Tartrate [Lopressor 25 mg (*)] 25 mg PO BID #0 tab 08/01/16 [Last Taken Unknown] [place]-3 Fatty Acids [Fish Oil 1000 mg (*)] 1,000 mg PO DAILY #0 cap 08/01/16 [ Last Taken Unknown] Ondansetron Odt [Zofran Odt 4 mg (*)] 4 mg PO Q4HRS PRN #0 tab 08/01/16 [Last Taken Unknown] Sildenafil Citrate [Revatio 20 MG (*)] 20 mg PO TIDMEAL #0 tab 08/01/16 [Last Taken Unknown] Spironolactone [Aldactone 25 MG (*)] 25 mg PO DAILY #0 tab 08/01/16 [Last Taken Unknown] Warfarin Sodium [Coumadin 2.5MG (*)] 2.5 mg PO MWF@16 #0 tab 08/01/16 [Last Taken Unknown] Warfarin Sodium [Coumadin 3MG (*)] 3 mg PO SUTUTHSA@16 #0 tab 08/01/16 [Last Taken Unknown] diphenhydrAMINE [Benadryl 25 MG (*)] 25 - 50 mg PO Q6HRS PRN #0 cap 08/01/16 [ Last Taken Unknown] metroNIDAZOLE [Flagyl 500 mg (*)] 500 mg PO TID #0 tab 08/01/16 [Last Taken Unknown] predniSONE 15 mg PO DAILY #0 tab 08/01/16 [Last Taken Unknown] [employer]ader Antibiotics: flagyl 500 mg tID Longterm Antibiotic Stop Date: 08/08/16 Discharge Medications: Refer to the Discharge Home Medication list for PRN reason. PICC Care - Routine: N/A - Orders Services needed: Physical Therapy, Occupational Therapy Isolation Type: contact for c diff Oxygen: 0-3 lpm for saturations >90% Diet Recommendation: no restrictions on diet Diet Texture: Regular Texture Diet Tube feeding: n/a Weigh Patient: daily Celestin: No Equipment: brace--on when not in bed - Labs/Radiology BMP Date: 08/05/16 CBC Date: 08/05/16 PT/INR Date: 08/05/16 - Follow Up Care Current Providers and Referrals: Luke Alaniz PA [Primary Care Provider] - Patient,NotPresent [Unknown] - As per Instructions
[2016-08-01 09:46] VITALS: RESP 14; O2SAT 93
[2016-08-01] MEDS: DIGOXIN 125 MCG TAB PO SCH (11:37)
[2016-08-01] MEDS ORDERED: WARFARIN SODIUM 2.5 MG TAB PO SCH (16:00)
--- NOTE | 2016-08-02 02:17 | GDS ---
[f rep st] DISCHARGE SUMMARY Date of transfer to [facility] 08/01/2016. REASON FOR ADMISSION: Pneumonia, fluid overload, confusion. DISCHARGE DIAGNOSES: Lower lobe pneumonia treated with 5 days of Invanz with good improvement. Flu id overload improved with stable diuretic plan, compressive stockings, and increased mobilization. HOSPITAL COURSE: Patient was admitted given increased confusion, lethargy, tiredness, and more heather a. She was found to be somewhat edematous as well as a suggestion of infiltrates in her bases consi stent with possible aspiration pneumonia. For this reason, she was started on Invanz 1 g daily. Th is was adjusted downward given her mild renal insufficiency and age. She has tolerated therapy well . Unfortunately, she developed diarrhea on Monday, 07/31. This turned out to be positive for C dif ficile. She began to have some stool incontinence. For this reason, she will be transferred to [facility] to deal with the C difficile diarrhea and improve her strength prior to [facility] transition home over the next week. Her Coumadin was initially held given mildly elevated INR. I t has been resumed and INR has been in the therapeutic range for her underlying atrial fibrillation. Her Lasix has been reduced downward slightly to 40 mg b.i.d. during the hospital stay. This will be returned to 60/40 morning and mid afternoon. She will continue on her spironolactone. The rest of her medications have otherwise been stable. /[id number]/MODL
--- NOTE | 2016-08-04 14:11 | PQFORM ---
PHYSICIAN QUERY FORM Needs Your Response This query form is being sent to you to assure this patient record is coded properly. Please respond to the question below: COFFEE SOMMELIER QUESTION: Dear Dr. Springer Patient was admitted with pneumonia and was noted to be confused. It was noted in they H&P that the confusion was likely due to pneumonia versus fluid overload. H&P documented patient as having 'acute encephalopathy.' Patient is noted in SOAP notes dated 07/28-08/01 to have 'confusion/mental status change from baseline.' After study, can the patients confusion be further specified as : Acute confusion Acute encephalopathy __This, Some other type of mental status change Unable to determine Thank you WILFREDO Cardenas HIM/Coding Dept [phone] INSTRUCTIONS FOR RESPONSE: Answer question by clicking on the "Edit Document" button. Move cursor to area below the stars. When complete, hit "Save." Click on the "Sign" button, then click "Sign" again. Type in your PIN and hit "Enter." MTDD
== END 2016-08-01 15:17 | DRG 177 ==
LOC: EDUNIT# → OBSVTOIN 13:03 → F2W 15:19
PROVIDERS: ADMIT Internal Medicine; ATTEND Internal Medicine
DX: J69.0 Pneumonitis due to inhalation of food and vomit (principal); G93.49 Other encephalopathy; I50.22 Chronic systolic (congestive) heart failure; B96.89 Other specified bacterial agents as the cause of diseases classified elsewhere; R19.7 Diarrhea, unspecified; R41.0 Disorientation, unspecified; R15.9 Full incontinence of feces; I48.91 Unspecified atrial fibrillation; I10 Essential (primary) hypertension; I27.2 Other secondary pulmonary hypertension; E78.00 Pure hypercholesterolemia, unspecified; Z85.3 Personal history of malignant neoplasm of breast; Z95.4 Presence of other heart-valve replacement; Z88.0 Allergy status to penicillin; Z79.01 Long term (current) use of anticoagulants; Z66 Do not resuscitate
CPT/HCPCS: 97161-GP; 97164-GP; 97165-GO; G8978-GP-CI; G8978-GP-CJ; G8979-GP-CI; G8980-GP-CI; G8987-GO-CI; G8988-GO-CI; G8989-GO-CI; J0692; J1335

== ENCOUNTER → 2016-09-23 | Outpatient (CLI) | payer OTHER, MEDICARE ==
[~2016-09-23] MED LIST: GADOBUTROL 10 ML VIAL IVP ONE
== END ==
LOC: FIMAGING 18:37
PROVIDERS: ATTEND Psychiatry & Neurology Neurology
DX: R41.0 Disorientation, unspecified (principal); R41.3 Other amnesia
CPT/HCPCS: 70553; A9585